=== PATIENT | male | born 1940 | race Caucasian/White ===

== ENCOUNTER 2019-04-06 10:08 | Day surgery (SDC) | payer MEDICARE, MEDICAID ==
[2019-04-06] VITALS (9 sets, daily range): BP systolic 105–144; BP diastolic 56–74
[~2019-04-06] VITALS: Ht 172.7 cm; Wt 96.6 kg
[~2019-04-06 10:08] MED LIST: ALLO300T2 PO; ATOR40TA PO; CLOP75TA35 PO; FAMO20TA8 PO; FURO80TA87 PO; ISOS60TA4 PO; LANTUS SQ; LINA5TAB4 PO; POTA8TAB8 PO
[2019-04-06] MEDS ORDERED: diphenhydrAMINE 25mg capsule PO PRN (11:10)
[2019-04-06] MEDS ORDERED: normal saline 1,000 ML IV SCH (11:10)
[2019-04-06] MEDS ORDERED: dextrose 50%-water 50ml dispensing syringe IV ONE (11:32)
[2019-04-06 12:04] LABS: ALBUMIN 3.1 G/DL (3.4-5.0); ANION GAP 7 (8-16); BASOPHILS # (AUTO) 0.1 X10'3 (0-0.2); BASOPHILS % (AUTO) 0.8 % (0-1); BLOOD UREA NITROGEN 17 MG/DL (7-18); BUN/CREATININE RATIO 12.5 (5.4-32.0); CALCIUM 8.6 MG/DL (8.5-10.1); CHLORIDE 107 MMOL/L (99-107); CREATININE 1.36 MG/DL (0.60-1.10); EOSINOPHILS # (AUTO) 0.2 X10'3 (0-0.9); EOSINOPHILS % (AUTO) 1.5 % (0-6); GLUCOSE 51 MG/DL (70-104); HEMATOCRIT 32.1 % (42.0-52.0); HEMOGLOBIN 10.5 g/dl (14.0-17.9); LYMPHOCYTES # (AUTO) 3.6 X10'3 (1.1-4.8); LYMPHOCYTES % (AUTO) 22.7 % (21-51); MAGNESIUM 2.3 MG/DL (1.5-2.4); MEAN CORPUSCULAR HEMOGLOBIN 31.6 PG (27.0-31.0); MEAN CORPUSCULAR HGB CONC 32.9 g/dL (33.0-36.5); MEAN CORPUSCULAR VOLUME 96.2 FL (78-98); MEAN PLATELET VOLUME 9.5 FL (7.4-10.4); MONOCYTES # (AUTO) 1.2 X10'3 (0-0.9); MONOCYTES % (AUTO) 7.7 % (2-12); NEUTROPHILS # (AUTO) 10.8 X10'3 (1.8-7.7); NEUTROPHILS % (AUTO) 67.3 % (42-75); PLATELET COUNT 359 X10'3 (140-440); POTASSIUM 4.3 MMOL/L (3.5-5.1); RED BLOOD COUNT 3.33 X10'6 (4.70-6.10); RED CELL DISTRIBUTION WIDTH 15.1 % (11.5-14.5); SODIUM 141 MMOL/L (135-145); TOTAL CARBON DIOXIDE 27.3 MMOL/L (24-32); eGFR 51 ML/MIN
[2019-04-06] MEDS ORDERED: PANT-47 PO (12:05)
[2019-04-06] MEDS ORDERED: ISOS60TA4 PO (12:05)
[2019-04-06] MEDS ORDERED: FLO0.4C PO (12:05)
[2019-04-06] MEDS ORDERED: NITR0.4T51 SL (12:05)
[2019-04-06] MEDS ORDERED: FURO-150 PO (12:05)
[2019-04-06] MEDS ORDERED: POTA10TA10 PO (12:05)
[2019-04-06] MEDS ORDERED: fentaNYL/PF 50MCG/1 ML 2ML syringe ONE (13:40)
[2019-04-06] MEDS ORDERED: LIDOcaine 1% (10mg/ml)w/preservative injection 20ml MDV ONE (13:40)
[2019-04-06] MEDS ORDERED: iohexol 350 MG/ML 50ML vial IV ONE (13:40)
[2019-04-06] MEDS ORDERED: iohexol 350MG/ML 100ml bottle IV ONE (13:40)
[2019-04-06] MEDS ORDERED: proCHLORperazine 10 MG/2 ml inj ONE (13:40)
[2019-04-06] MEDS ORDERED: midazolam 2 mg/2 ml injection ONE (13:40)
== END 2019-04-06 18:00 | disposition home or self-care (01) ==
LOC: SSTAY O 10:08
PROVIDERS: ATTEND Internal Medicine Cardiovascular Disease
DX: I25.10 Atherosclerotic heart disease of native coronary artery without angina pectoris (principal); I10 Essential (primary) hypertension; E78.5 Hyperlipidemia, unspecified; E11.9 Type 2 diabetes mellitus without complications; Z79.01 Long term (current) use of anticoagulants; Z79.899 Other long term (current) drug therapy
CPT/HCPCS: 36415; 80048; 82948; 83735; 85025; 85610; 93005; 93458; 99152; 99153; C1769; C1894; J0780; J1644; J2001; J2250; J3010; J7030; Q0163; Q9967; A4620; A6258; C1760